=== PATIENT | female | born 1990 | race African-American/Black ===

== ENCOUNTER 2025-05-23 10:37 | Inpatient (IN) | payer BC ==
[~2025-05-23] VITALS: Ht 167.6 cm; Wt 65.8 kg
[2025-05-23 10:40] VITALS: O2SAT 100
[2025-05-23 11:54] LABS: BASOPHILS % 0.6 % (0.0-2.0); EOSINOPHILS % 3.1 % (0.0-5.0); HEMATOCRIT. 37.8 % (36.0-48.0); HEMOGLOBIN. 12.4 g/dL (12.0-16.0); LYMPHOCYTES % 36.9 % (20.0-50.0); MEAN PLATELET VOLUME 7.0 fl (7.4-10.4); MONOCYTES % 9.5 % (2.0-8.0); NEUTROPHILS % 49.9 % (40.0-76.0); PLATELET 251 x1000/uL (130-400); RED BLOOD CELL COUNT 4.17 mill/uL (4.2-5.4); RED CELL DISTRIBUTION WIDTH 13.3 % (11.6-14.6)
[2025-05-23 12:03] LABS: INR 1.0
[2025-05-23 12:07] LABS: CREATININE 0.7 mg/dL (0.6-1.0)
[2025-05-23 12:08] LABS: UREA NITROGEN BLOOD 9 mg/dL (9-23)
[2025-05-23 12:09] LABS: ASPARTATE AMINOTRANSFERASE 33 IU/L (<34)
[2025-05-23 12:10] LABS: BILIRUBIN DIRECT 0.2 mg/dL (<=3.0); BILIRUBIN TOTAL 0.7 mg/dL (0.1-1.0); PROTEIN TOTAL 6.8 g/dL (6.0-8.3)
[2025-05-23 14:30] VITALS: BP 102/67; PULSE 67; RESP 18; TEMP 36.9; TEMP 36.974; O2SAT 99
[2025-05-23] MEDS ORDERED: ONDANSETRON HCL 4MG/2ML INJ IV PRN (14:45)
[2025-05-23] MEDS ORDERED: ACETAMINOPHEN 325MG TABLET PO PRN (14:45)
[2025-05-23] MEDS ORDERED: OLAN15TA97 MT (15:40)
[2025-05-23] MEDS ORDERED: HYDR-3735 MT (15:40)
[2025-05-23] MEDS ORDERED: LAM2 MT (15:40)
[2025-05-23 16:00] VITALS: BP 105/70; PULSE 72; RESP 20; TEMP 36.9; O2SAT 100
[2025-05-23] MEDS ORDERED: HYDROXYZINE 25MG TABLET PO PRN (16:15)
[2025-05-23] MEDS: LAMOTRIGINE 100MG TABLET PO SCH (16:30)
[2025-05-23 17:02] LABS: GLUCOSE URINE NEGATIVE (NEGATIVE); KETONES URINE NEGATIVE (NEGATIVE); LEUKOCYTE ESTERASE URINE TRACE (NEGATIVE); NITRITE URINE NEGATIVE (NEGATIVE); OCCULT BLOOD URINE TRACE (NEGATIVE); PH URINE 7.5 (4.5-8.0); PROTEIN URINE NEGATIVE (NEGATIVE); SPECIFIC GRAVITY URINE 1.007 (1.005-1.030); UROBILINOGEN URINE 0.2 E.U./dL (0.2-1.0)
[2025-05-23 17:10] LABS: *AMPHETAMINES SCREEN URINE NEGATIVE (NEGATIVE); *BARBITURATES SCREEN URINE NEGATIVE (NEGATIVE); *BENZODIAZEPINES SCREEN URINE NEGATIVE (NEGATIVE); *COCAINE SCREEN URINE NEGATIVE (NEGATIVE); METHADONE URINE SCREEN NEGATIVE (NEGATIVE); OPIATES URINE SCREEN NEGATIVE (NEGATIVE); PHENCYCLIDINE URINE SCREEN NEGATIVE (NEGATIVE)
[2025-05-23 17:11] LABS: CANNABINOID URINE SCREEN NEGATIVE (NEGATIVE); ECSTASY MDMA SCREEN URINE NEGATIVE (NEGATIVE)
[2025-05-23 17:51] LABS: COLOR URINE STRAW (YELLOW)
[2025-05-23 17:52] LABS: CLARITY URINE SL HAZY (CLEAR)
[2025-05-23 17:53] LABS: BACTERIA URINE 1+; RBC URINE NONE SEEN /hpf (0-2); SQUAMOUS EPITHELIAL CELL URINE FEW /lpf (RARE/1+); WBC URINE 0-2 /hpf (0-2)
[2025-05-23 20:00] VITALS: BP 127/67; PULSE 68; RESP 18; TEMP 36.3; O2SAT 99
[2025-05-23] MEDS: OLANZAPINE 10MG TABLET PO SCH (20:55)
[2025-05-24] VITALS: BP 102/55; PULSE 78; RESP 18; TEMP 36.2; O2SAT 98
[2025-05-24 04:00] VITALS: BP 114/72; PULSE 78; RESP 20; TEMP 36.2; O2SAT 99
[2025-05-24 08:00] VITALS: BP 111/70; PULSE 88; RESP 18; TEMP 36.6; O2SAT 98
[2025-05-24] MEDS: PANTOPRAZOLE 40MG DR TABLET PO SCH (08:23)
[2025-05-24 12:00] VITALS: BP 124/69; PULSE 89; RESP 16; TEMP 36.3; O2SAT 97
[2025-05-24 16:00] VITALS: BP 118/65; PULSE 90; RESP 18; TEMP 36.4; O2SAT 98
[2025-05-24 20:00] VITALS: BP 117/65; PULSE 79; RESP 18; TEMP 36.6; O2SAT 97
[2025-05-25] VITALS: BP 117/65; PULSE 80; RESP 18; TEMP 36.9; O2SAT 98
[2025-05-25 04:00] VITALS: BP 117/65; PULSE 82; RESP 18; TEMP 36.4; O2SAT 97
[2025-05-25 08:02] VITALS: BP 127/83; PULSE 97; RESP 20; TEMP 36.6; O2SAT 96
[2025-05-25 12:00] VITALS: BP 119/76; PULSE 91; RESP 18; TEMP 36.9; O2SAT 99
[2025-05-25 13:48] LABS: INR 0.9
[2025-05-25 14:14] VITALS: BP 119/74; PULSE 91; RESP 18; TEMP 98
== END 2025-05-25 14:50 | disposition home or self-care (01) | DRG 48 ==
LOC: ER 10:37 → 8WST 13:38 → EDBEDREQ 13:44 → EDBEDREQTM 13:44 → ENRESERV 13:56
PROVIDERS: ADMIT Internal Medicine; ATTEND Internal Medicine
DX: G90.89 Other disorders of autonomic nervous system (principal); K64.9 Unspecified hemorrhoids
CPT/HCPCS: 36415; 80048; 80076; 80305; 81003; 82962; 85014; 85018; 85025; 86850; 86900; 99285